=== PATIENT | male | born 1955 | race Caucasian/White ===

== ENCOUNTER → 2021-02-21 14:36 | Outpatient (BNVA) | payer MEDICARE, OTHER, SELFPAY | PROVIDERS: PCP Internal Medicine; Visit Provider Internal Medicine | DX: M22.2X2 Patellofemoral disorders, left knee (principal); M25.562 Pain in left knee | CPT/HCPCS: 20610; 99202 ==

== ENCOUNTER → 2021-04-04 15:23 | Outpatient (BNVA) | payer MEDICARE, OTHER, SELFPAY | PROVIDERS: PCP Internal Medicine; Visit Provider Internal Medicine | DX: M25.562 Pain in left knee (principal); M22.2X2 Patellofemoral disorders, left knee | CPT/HCPCS: 99212 ==

== ENCOUNTER 2023-09-26 08:12 | Outpatient (AMB) | payer MEDICARE, OTHER, SELFPAY ==
--- NOTE | 2023-09-26 08:44 | MHC.OFFVIS ---
Vital Signs 09/26/23 08:46 Height 5 ft 10 in Weight 285 lb BMI 40.9 BP 188/82 H Blood Pressure Location Rt brachial Position Sitting Respiration 14 Pulse 62 Pulse Source Pulse Oximeter Pulse Oximetry (%) 98 Oxygen Delivery Method Room Air Intake Visit Reasons: Knee pain worsening Allergies No Known Allergies Allergy (Verified 09/26/23 08:49) Medication List - Last Reconciled 09/26/23 by Karo Tellez LPN naproxen 500 mg PO BID HPI HPI Knee pain worsening: Details: 68-year-old male who presents today for evaluation of left knee pain. He works as a construction crew member. He noticed his left knee pain started last , while working with firewood. He was feeling extremely sore on Sunday and Sunday; however, it has come down. He has difficulty walking for a prolonged period of time due to left knee pain and is not able to lift his left knee up. The patient is planning to go on a vacation to [place] and wanted to get his left knee pain evaluated before the vacation. He has been doing better from the pain standpoint after his last visit until last week. When he has been getting in and out of a dump truck to change the tire, he was not able to lift his weight up but he was able to pick himself up on his right leg perfectly fine. Patient was last seen here 2 years ago for worsening left knee pain for which he had received intra-articular and patellofemoral corticosteroid injection with 90% relief. He requests a repeat of the same injection. Past Procedures: 02/21/21: Intra-Articular and Patellofemoral Corticosteroid Injection ? 90% relief. 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 Alert and oriented. Mood and affect appropriate. Follows and participates in conversation appropriately. Respiratory effort is unlabored. Able to transition from sit to stand unassisted. Ambulates with bilaterally normal heel strike and toe off. Office Procedures Joint Injection/Aspiration Joint Injection/Aspiration Details: Left knee intra-articular injection, ultrasound-guided Primary Site: left knee Prep: site was prepped using sterile technique Injected: 40 mg of and Kenalog ( ropivacaine 0.5% with 2ml normal saline ) Approach Used: other (Suprapatellar) Procedure: The patient tolerated the procedure well Coding Details: An image of the ultrasound guided injection was saved to the patient's permanent record. - Large joint Procedure code (CPT) selection complete Assessment & Plan Assessment & Plan (1) Left medial knee pain: Code(s): M25.562 - Pain in left knee Category: Medical (2) Patellofemoral syndrome of left knee: Code(s): M22.2X2 - Patellofemoral disorders, left knee Category: Medical Plan Patient is status post left knee intra articular injection. Patient tolerated procedure well and was discharged home in stable condition with discharge instructions. All questions were answered. Follow-up as needed. Scribed for Dr. Villarreal by Matt medical accounting clerk, on 09/26/2023. I, Dr. Villarreal, have personally reviewed and agree with the information entered by the scribe. Coding Level of Care Code Est Pt Level 3 (15629) Diagnoses Left medial knee pain M25.562 Patellofemoral syndrome of left knee M22.2X2 CPT Codes Coding - Large joint: 22650 - Large joint ([id number])
[2023-09-26 08:46] VITALS: BP 188/82; PULSE 62; RESP 14; O2SAT 98; BMI 40.9
== END 2023-09-26 09:04 | disposition home or self-care (01) ==
PROVIDERS: PCP Internal Medicine; Visit Provider Internal Medicine
DX: M25.562 Pain in left knee (principal); M22.2X2 Patellofemoral disorders, left knee
CPT/HCPCS: 20611; 99213

== ENCOUNTER → 2023-09-26 08:12 | Outpatient (BNVA) | payer MEDICARE, OTHER, SELFPAY | PROVIDERS: PCP Internal Medicine; Visit Provider Internal Medicine | DX: M25.562 Pain in left knee (principal); M22.2X2 Patellofemoral disorders, left knee | CPT/HCPCS: 20611; 99212 ==